=== PATIENT | female | born 1965 | race Caucasian/White ===

== ENCOUNTER 2017-03-05 17:26 | Emergency (ER) | payer MEDICAID ==
[2017-03-05 20:10] LABS: BASOPHIL % 0.3 % (0-2); PLATELET COUNT 260 x10^3mcL (130-400); RED CELL DISTRIBUTION WIDTH 14.2 % (11.5-14.5)
[2017-03-05 20:13] LABS: CALCIUM 8.4 mg/dL (8.5-10.1); CARBON DIOXIDE 29.9 mmol/L (21-32); CHLORIDE SERUM 101 mmol/L (98-107); GFR1 > 60 mL/min; GLUCOSE SERUM 374 mg/dL (74-106); POTASSIUM SERUM 3.2 mmol/L (3.5-5.1); SODIUM SERUM 135 mmol/L (136-145)
[2017-03-05 20:17] LABS: ALBUMIN 3.4 g/dL (3.4-5.0); ALKALINE PHOSPHATASE 88 U/L (46-116); ALT/SGPT 33 U/L (14-59); AST/SGOT 16 U/L (15-37); BILIRUBIN TOTAL 0.35 mg/dL (0.20-1.00); LIPASE 208 IU/L (73-393); TOTAL PROTEIN, SERUM 7.5 g/dL (6.4-8.2)
[2017-03-05 22:58] VITALS: BP 134/88
== END 2017-03-05 22:40 | disposition home or self-care (01) ==
LOC: EDBD 17:26 → ED 17:26
PROVIDERS: Emergency Medicine
DX: R10.32 Left lower quadrant pain (principal)
CPT/HCPCS: J2270; J7030